=== PATIENT | male | born 1965 | race African-American/Black ===

== ENCOUNTER 2018-08-31 03:51 | Emergency (ER) | payer SELFPAY ==
--- NOTE | 2018-08-31 05:23 | EDM.PDOC ---
ED HPI GENERAL MEDICAL PROBLEM - General Chief Complaint: ENT Problem Stated Complaint: BUG IN EAR Time Seen by Provider: 08/31/18 05:19 Source of Information: Reports: Patient - History of Present Illness INITIAL COMMENTS - FREE TEXT/NARRATIVE: 53 yo presents with concerns of moth in his left ear. He felt it fly in when walking out of the restroom today. - Related Data Allergies Allergy/AdvReac Type Severity Reaction Status Date / Time No Known Allergies Allergy Verified 08/31/18 04:06 Home Meds: Home Meds NK [No Known Home Meds] 08/31/18 [History] Social & Family History - Tobacco Use Smoking Status *Q: Never Smoker - Caffeine Use Caffeine Use: Reports: Coffee - Recreational Drug Use Recreational Drug Use: No ED ROS ENT - Review of Systems Review Of Systems: See Below Constitutional: Reports: No Symptoms HEENT: Reports: Other (bug in ear) Respiratory: Reports: No Symptoms Cardiovascular: Reports: No Symptoms Endocrine: Reports: No Symptoms GI/Abdominal: Reports: No Symptoms : Reports: No Symptoms Musculoskeletal: Reports: No Symptoms Skin: Reports: No Symptoms Neurological: Reports: No Symptoms Psychiatric: Reports: No Symptoms Hematologic/Lymphatic: Reports: No Symptoms Immunologic: Reports: No Symptoms ED EXAM, ENT - Physical Exam Exam: See Below Exam Limited By: No Limitations General Appearance: Alert, No Apparent Distress Ears: Other (moth attempting to flap wings in left ear near TM) Nose: Normal Inspection Mouth/Throat: Normal Inspection Head: Atraumatic, Normocephalic Neck: Normal Inspection Respiratory/Chest: No Respiratory Distress Cardiovascular: Regular Rate, Rhythm GI/Abdominal: No Distention Extremities: Normal Inspection Neurological: Alert, Oriented Psychiatric: Normal Affect, Normal Mood Skin: Warm, Dry Course - Vital Signs Last Recorded V/S: Last Vital Signs Temp 36.2 C 08/31/18 04:05 Pulse 60 08/31/18 04:05 Resp 18 08/31/18 04:05 BP 160/86 H 08/31/18 04:05 Pulse Ox 98 08/31/18 04:05 - Re-Assessments/Exams Free Text/Narrative Re-Assessment/Exam: 53 yo presents with concerns of moth lodged in left ear. Dislodged after irrigation with warm saline Discharged 08/31/18 05:27 Departure - Departure Time of Disposition: 05:21 Disposition: Home, Self-Care 01 Clinical Impression: Ear foreign body Qualifiers: Encounter type: initial encounter Laterality: left Qualified Code(s): T16.2XXA - Foreign body in left ear, initial encounter - Discharge Information Referrals: PCP,None [Primary Care Provider] - Forms: ED Department Discharge Additional Instructions: Please follow up with your primary doctor as needed.
== END 2018-08-31 05:29 | disposition home or self-care (01) ==
LOC: JP.ED 03:51
DX: T16.2XXA Foreign body in left ear, initial encounter (principal); X58.XXXA Exposure to other specified factors, initial encounter
CPT/HCPCS: 69200; 99281; 99282